=== PATIENT | female | born 1945 | race Caucasian/White ===

== ENCOUNTER 2017-10-31 10:27 | Emergency (ER) | payer MEDICARE | END 2017-10-31 10:52 | disposition left against medical advice (07) | LOC: UCEAST 10:27 | DX: T14.8XXA Other injury of unspecified body region, initial encounter (principal); W57.XXXA Bitten or stung by nonvenomous insect and other nonvenomous arthropods, initial encounter; Y93.9 Activity, unspecified; Y92.9 Unspecified place or not applicable; Z53.21 Procedure and treatment not carried out due to patient leaving prior to being seen by health care provider ==

== ENCOUNTER 2017-10-31 11:37 | Emergency (ER) | payer MEDICARE ==
--- NOTE | 2017-10-31 12:12 | UC ---
Skin Complaint HPI - HPI Summary HPI Summary: 72 y/o WF presents with tick bite to left flank. She tells me that she was outside most of the day yesterday and noticed the tick on her this morning. Tick is still present. - History of Current Complaint Time Seen by Provider: 10/31/17 12:12 Stated Complaint: TICK BITE Hx Obtained From: Patient Onset/Duration: Sudden Onset Skin Exposure Onset/Duration: Hours Ago - Allergy/Home Medications Allergies/Adverse Reactions: Allergies Allergy/AdvReac Type Severity Reaction Status Date / Time adhesive Allergy Rash Verified 10/31/17 12:29 atropine Allergy Unknown Verified 10/31/17 12:29 Reaction Details azithromycin Allergy Rash Verified 10/31/17 12:29 ciprofloxacin [From Cipro] Allergy Rash And Verified 10/31/17 12:29 Itching erythromycin base Allergy Sweats/Chil Verified 10/31/17 12:29 ls iodine Allergy Unknown Verified 10/31/17 12:29 Reaction Details latex Allergy Rash Verified 10/31/17 12:29 methyldopa [From Aldomet] Allergy Fever/Chill Verified 10/31/17 12:29 s Penicillins Allergy Agitation Verified 10/31/17 12:29 shellfish derived Allergy Anaphylatic Verified 10/31/17 12:29 Shock sulfamethoxazole Allergy Anaphylatic Verified 10/31/17 12:29 [From Bactrim] Shock trimethoprim [From Bactrim] Allergy Anaphylatic Verified 10/31/17 12:29 Shock chlorpheniramine AdvReac Insomnia Verified 10/31/17 12:29 guaifenesin [From Entex T] AdvReac Agitation Verified 10/31/17 12:29 methylparaben AdvReac Agitation Verified 10/31/17 12:34 phenylephrine AdvReac Agitation Verified 10/31/17 12:34 phenylpropanolamine AdvReac Agitation Verified 10/31/17 12:34 pseudoephedrine AdvReac Agitation Verified 10/31/17 12:29 [From Entex T] shrimp/lobster Allergy Severe Hives Uncoded 03/31/15 11:59 wasp stings Allergy Severe Hives Uncoded 03/31/15 11:59 ERYS Allergy sweats/chil Uncoded 10/31/17 12:29 ls EES AdvReac Severe Diarrhea Uncoded 02/23/17 11:09 decongestants AdvReac Intermediate See Comment Uncoded 02/23/17 11:09 ENVIRONMENTAL ALLERGIES AdvReac Mild Unknown Uncoded 03/31/15 11:59 Reaction Details Home Medications: Home Medications Albuterol Sulfate [Proventil Hfa] 7 gm INH Q4HR PRN 10/31/17 [History Confirmed 10/31/17] Estradiol [Yuvafem] 10 mcg VAGINAL SEE INSTRUCTIONS 10/31/17 [History Confirmed 10/31/17] Fluticasone/Vilanterol MDI(NF) [Breo Ellipta MDI 100/25(NF)] 1 puff INH DAILY [History Confirmed 10/31/17] Losartan Potassium 100 mg PO DAILY 10/31/17 [History Confirmed 10/31/17] [place]-3 Fatty Acids/Fish Oil [Fish Oil 1,000 mg Capsule] 1 tab PO DAILY [History Confirmed 10/31/17] Triamcinolone NASAL SPRAY* [Nasacort Aq Nasal [place]*] 2 spray NASAL DAILY [History Confirmed 10/31/17] metroNIDAZOLE [Metronidazole 0.75 % gel] 1 applic TOPICAL DAILY 10/31/17 [ History Confirmed 10/31/17] Review of Systems Constitutional: Negative Skin: Other - Tick bite Eyes: Negative ENT: Negative Respiratory: Negative Cardiovascular: Negative Gastrointestinal: Negative Neurovascular: Negative Neurological: Negative Psychological: Negative All Other Systems Reviewed And Are Negative: Yes PMH/Surg Hx/FS Hx/Imm Hx Endocrine History: Dyslipidemia Cardiovascular History: Hypertension Respiratory History: COPD, Asthma Psychological History: Anxiety, Depression - Surgical History Surgical History: Yes Surgery Procedure, Year, and Place: NASAL SURGERY POLYPS, OFFICE. NASAL SURGERY LEFT PRISCILA FUENTES. DILATION AND CURETTAGE-11/27, [facility] [place]. CATARACT RIGHT EYE 11/29, [facility] [place]. CATARACT LEFT EYE 08/2003, [facility] [place]; LEFT KNEE. 2012 LEFT KNEE PATELLA SURGERY X 4, [facility] - Family History Known Family History: Positive: Unknown - Social History Occupation: Retired Lives: With Family Alcohol Use: None Substance Use Type: None Smoking Status (MU): Never Smoked Tobacco - Immunization History Most Recent Influenza Vaccination: 2011 Most Recent Tetanus Shot: within last 10 years Most Recent Pneumonia Vaccination: 10 years ago Physical Exam - Summary Physical Exam Summary: GENERAL: NAD. WDWN. No pain distress. SKIN: Left flank: there is a 5mm diameter of mild erythema and edema with tick present. Not engorged. No streaking, bleeding, or drainage. NECK: Supple. Nontender. No lymphadenopathy. CHEST: No accessory muscle use. Breathing comfortably and in no distress. CV: RRR. Without m/r/g. NEURO: Alert. CN II-XII grossly intact. PSYCH: Age appropriate behavior. Triage Information Reviewed: Yes Course/Dx - Course Course Of Treatment: Tick bite left flank <24hours and not engorged. No treatment needed. Tick removed with tick tweezers. - Diagnoses Provider Diagnoses: Tick bite left flank Discharge - Sign-Out/Discharge Documenting (check all that apply): Discharge/Admit/Transfer - Discharge Plan Condition: Stable Disposition: HOME Patient Education Materials: Tick Bite (ED) Referrals: Silvina Sabillon MD [Primary Care Provider] - Additional Instructions: TICK BITE: You have been bitten by a tick. Once the tick is removed, these "bites" usually cause no problems. Tick fever, tick paralysis, [place] Spotted fever, and Lyme disease are uncommon -- but you should mention this tick bite to your doctor if you develop unusual symptoms in the next several weeks. If you develop any of the following, please see your physician promptly: (1) Fever, chills, or generalized malaise associated with a headache. (2) A red round area at the site of the bite (or elsewhere) (3) Joint pain, joint swelling or generalized weakness. (4) Redness, swelling, or drainage at the site of the bite. - Billing Disposition and Condition Condition: STABLE Disposition: HOME
[2017-10-31 12:20] VITALS: BP 123/64
== END 2017-10-31 12:45 | disposition home or self-care (01) ==
LOC: UCEAST 11:37
DX: S30.861A Insect bite (nonvenomous) of abdominal wall, initial encounter (principal); W57.XXXA Bitten or stung by nonvenomous insect and other nonvenomous arthropods, initial encounter; Y93.9 Activity, unspecified; Y92.89 Other specified places as the place of occurrence of the external cause; E78.5 Hyperlipidemia, unspecified; I10 Essential (primary) hypertension; J44.9 Chronic obstructive pulmonary disease, unspecified; F41.9 Anxiety disorder, unspecified; F32.9 Major depressive disorder, single episode, unspecified; Z88.1 Allergy status to other antibiotic agents; Z88.3 Allergy status to other anti-infective agents; Z91.040 Latex allergy status; Z88.0 Allergy status to penicillin; Z88.2 Allergy status to sulfonamides; Z88.8 Allergy status to other drugs, medicaments and biological substances; Z91.048 Other nonmedicinal substance allergy status
CPT/HCPCS: 99212; G0463

== ENCOUNTER 2018-06-26 13:29 | Emergency (ER) | payer MEDICARE ==
--- OUTSIDE RECORDS SUMMARY | 2018-06-26 14:16 | XMS REPORT | Continuity of Care Document ---
:1945 External Reference #:[id number] Author Name Checo Bah M.D. Address [address] [place] [address] Care Team Providers Name Role Phone Silvina Sabillon M.D. Primary Care Physician Unavailable Payers Type Date Identification Numbers Payment Provider Subscriber Policy Number: [id number] Medicare - [facility] Татьяна Seo Mychal Cruz PayID: [id number] [address] [place] [address] Policy Number: [id number] [facility] Татьяна Rayray Mychal Cruz PayID: [id number] [address] [place] [address] Advance Directives Description No Information Available Problems Date Description Provider Status Onset: Essential hypertension Active Onset: Irregular heart beat Active Onset: Anxiety Active Onset: Mild depression Active Onset: Hypercholesterolemia Active Onset: Asthma Active Onset: Seasonal allergy Active Onset: Sinusitis Active Onset: Psoriasis Active Onset: Restless legs Active Onset: 11/07/2014 Glaucoma Pari Cheema O.D. Active Onset: 11/07/2014 Tear film insufficiency Pari Cheema O.D. Active Onset: 11/07/2014 Severe / Advanced / End Stage Pari Cheema O.D. Active Glaucoma Onset: 01/03/2015 Primary open angle glaucoma Checo Bah M.D. Active Onset: 01/09/2015 Pseudophakia Checo Bah M.D. Active Onset: 12/09/2016 Other secondary cataract, right eye Checo Bah M.D. Active Onset: 06/12/2017 Vitreous degeneration Checo Bah M.D. Active Onset: 04/26/2018 Blepharitis Yomi Ovalles M.D. 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 ETOH Use Rarely consumes alcohol Tobacco Use Start: Unknown Patient has never smoked Smoking Status Reviewed: 06/14/18 Patient has never smoked Allergies, Adverse Reactions, Alerts Date Description Reaction Status Severity Comments 11/07/2014 Sulfa Antibiotics Active 11/07/2014 Bactrim Active 11/07/2014 Penicillins Active 11/07/2014 Cipro Active 11/07/2014 Zithromax Active 11/07/2014 Atropine Active 11/07/2014 Aldesleukin Active 11/07/2014 Bandaids Active Medications Medication Date Status Form Strength Qnty SIG Indications Ordering Provider Systane 11/06/ Active Solution 0.4-0.3% four Pari K. 2015 times a [place], day as O.D. needed Systane 11/06/ Active Ointment every Pari K. Nighttime 2014 night Deni, O.D. Proventil HFA / Active Aerosol 108(90Base Unknown 0000 ) mcg/Act Nasonex / Active Suspension 50mcg/Act Unknown 0000 Alendronate / Active Tablets 10mg 1 by Unknown Sodium 0000 mouth every day Amlodipine / Active Tablets 5mg Unknown Besylate 0000 Clonazepam / Active Tablets 1mg Unknown 0000 Escitalopram / Active Tablets 20mg Unknown Oxalate 0000 Tylenol 8 Hour / Active Tablets ER 650mg prn Unknown 0000 Aleve / Active Capsules 220mg as Unknown 0000 needed Losartan / Active Tablets 50mg Unknown Potassium 0000 Lovastatin / Active Tablets 20mg Unknown 0000 Metronidazole / Active Gel 0.75% Unknown 0000 Potassium / Active Tablets ER 10Meq Unknown Chloride ER 0000 Fish Oil / Active Capsules 1000mg 1 by Checo García 0000 mouth Arleo, every M.D. day Benefiber 00/00/ Active Powder Unknown 0000 Zeasorb 00/00/ Active Powder Unknown 0000 Breo Ellipta 00/00/ Active Aerosol 200-25mcg/ Unknown 0000 Inh Cetirizine HCL 00/00/ Active Tablets 10mg Unknown 0000 Ranitidine HCL 00/00/ Active Tablets 150mg Unknown 0000 Eplerenone 00/00/ Active Tablets 25mg Unknown 0000 Calcium + D3 0000/ Active Tablets 600-200mg- Unknown 0000 Unit Magnesium 0000/ Active Tablets 250mg Unknown 0000 Yuvafem 00/00/ Active Tablets 10mcg Unknown 0000 Erythromycin 04/26/ Hx Ointment 5mg/GM 1Tube Apply To H01.005 Yomi 2017 - The Left Zakenricki, 06/13/ Eye AT M.D. 2018 Night For 2 Weeks Pred Forte 01/09/ Hx Suspension 1% 15ml 1 drop 365.11 Checo García 2014 - left eye Arleo, 01/19/ three M.D. 2015 times a day for three days. start after nadeem acuña Advair Diskus 00/00/ Hx Aerosol 500-50mcg/ Unknown 0000 - Dose 2014 Zyrtec Allergy 00/00/ Hx Capsules 10mg as Unknown 0000 - needed 2017 Saline Nasal / Hx Solution 0.65% Unknown [place] - 2016 Aspirin 00/00/ Hx Chewtabs 81mg Unknown 0000 - 2016 Omeprazole /00/ Hx Capsules DR 20mg Unknown 0000 - 2016 Vagifem / Hx Tablets 10mcg Unknown 0000 - 2017 Caltrate 600+D 00// Hx Chewtabs 600-400mg- Unknown 0000 - Unit 2016 Dulera 00/00/ Hx Aerosol 100-5mcg/A Unknown 0000 - ct 2016 Vitamin D3 High 00/00/ Hx Capsules 1000Unit Unknown Potency - 2016 Vitamin D3 00/00/ Hx Chewtabs 1000Unit Unknown 0000 - 2016 Immunizations Description No Information Available Vital Signs Date Vital Result Comment 12/22/2016 2:47pm BP Systolic 132 mmHg BP Diastolic 77 mmHg Heart Rate 61 /min Results Description No Information Available Procedures Date Code Description Status 04/26/2018 51015 Est Patient Intermediate Exam Completed 12/10/2017 86403 Est Patient Intermediate Exam Completed 06/12/2017 31803 Scanning Computerized Ophthalmic Diagnostic Imag Posterior Completed Seg On 06/12/2017 90524 Visual Field Exam Extended Completed 06/12/2017 49519 Est Patient Comprehensive Exam Completed 12/22/2016 81053 Remove Secondary Cataract, Laser (Yag) Completed 12/09/2016 91630 Est Patient Comprehensive Exam Completed 06/09/2016 54953 Est Patient Intermediate Exam Completed 06/09/2016 28482 Scanning Computerized Ophthalmic Diagnostic Imag Posterior Completed Seg On 06/05/2016 47190 Visual Field Exam Extended Completed 10/09/2015 83552 Fundus Photography With Interpretation And Report Completed 10/09/2015 36035 Est Patient Comprehensive Exam Completed 01/15/2015 71232 Trabeculoplasty By Laser Surgery Completed 01/15/2015 601 [place] Completed 01/09/2015 51908 Est Patient Intermediate Exam Completed 01/03/2015 29360 Visual Field Exam Extended Completed 06/12/2014 01652 Est Patient Comprehensive Exam Completed 06/12/2014 61197 Fundus Photography With Interpretation And Report Completed 12/20/2013 21395 Visual Field Exam Extended Completed 12/09/2013 99818 Remove Secondary Cataract, Laser (Yag) Completed 12/05/2013 54905 Est Patient Comprehensive Exam Completed 01/17/2013 31116 Scanning Computerized Ophthalmic Diagnostic Imag Posterior Completed Seg On 01/17/2013 72754 Est Patient Intermediate Exam Completed 01/14/2013 22820 Visual Field Exam Extended Completed 07/12/2012 17242 Determination Of Refractive State Completed 07/12/2012 64782 Est Patient Comprehensive Exam Completed 01/08/2012 03821 Scanning Computerized Ophthalmic Diagnostic Imag Posterior Completed Seg On 01/08/2012 18425 Visual Field Exam Extended Completed 01/08/2012 39874 Est Patient Intermediate Exam Completed 11/19/2011 29299 Est Patient Intermediate Exam Completed 07/10/2011 68774 Fundus Photography With Interpretation And Report Completed 07/10/2011 12553 Est Patient Intermediate Exam Completed 01/02/2011 88734 Est Patient Comprehensive Exam Completed 01/02/2011 62696 Visual Field Exam Extended Completed 09/07/2010 50362 Est Patient Intermediate Exam Completed 07/02/2010 34019 Scanning Laser W/Interp And Report Completed 07/02/2010 68115 Scanning Laser W/Interp And Report Completed 07/02/2010 43500 Est Patient Intermediate Exam Completed 12/21/2009 88977 Visual Field Exam Extended Completed 12/21/2009 49866 Est Patient Intermediate Exam Completed 06/05/2009 68934 Est Patient Comprehensive Exam Completed 06/05/2009 50891 Fundus Photography With Interpretation And Report Completed 11/30/2008 41030 Visual Field Exam Extended Completed 11/30/2008 50501 Est Patient Intermediate Exam Completed 05/30/2008 28135 Scanning Laser W/Interp And Report Completed 05/30/2008 93333 Determination Of Refractive State Completed 05/30/2008 25525 Est Patient Intermediate Exam Completed 12/29/2007 34347 Visual Field Exam Extended Completed 11/23/2007 67875 Determination Of Refractive State Completed 11/23/2007 09273 Est Patient Intermediate Exam Completed 05/24/2007 37718 Est Patient Intermediate Exam Completed 01/01/2007 18238 Scanning Laser W/Interp And Report Completed 01/01/2007 57746 Visual Field Exam Extended Completed 11/25/2006 03487 Fundus Photography With Interpretation And Report Completed 11/25/2006 46260 Determination Of Refractive State Completed 11/25/2006 26651 Est Patient Comprehensive Exam Completed 12/26/2005 90215 Visual Field Exam Extended Completed 11/21/2005 71099 Est Patient Comprehensive Exam Completed 11/21/2005 42169 Determination Of Refractive State Completed 11/19/2004 00951 Determination Of Refractive State Completed 11/19/2004 21669 Est Patient Comprehensive Exam Completed 11/19/2004 510 Eye Scrubs 30 Count Completed 05/20/2004 25679 Est Patient Intermediate Exam Completed 02/21/2004 05837 Visual Field Exam Intermediate Completed 02/07/2004 57360 Est Patient Intermediate Exam Completed 10/12/[address] 35 Completed 09/27/2003 44467 Extracapsular Cataract Extraction W/Intraocular Lens Completed Encounters Type Date Location Provider Dx Diagnosis Office Visit 02/26/2015 Checo Vera, 365.11 Primary Open Angle 10:30a zeina PAEZ M.D. Glaucoma 365.73 Severe / Advanced / End Stage Glaucoma V43.1 Pseudophakia Office Visit 11/07/2014 11:15a Pari Vera, 365.11 Primary Open zeina PAEZ O.D. Angle Glaucoma 375.15 Dry Eyes (Sicca Syndrome) 365.73 Severe / Advanced / End Stage Glaucoma Office Visit 06/16/2014 11:10a Checo García 379.91 Pain In Or Around MD Niurka, zeina Rendon O.D. Eye Office Visit 12/15/2011 1:30p Checo Minor 372.14 Allergic MD Niurka, zeina Lau M.D. Conjunctivitis Office Visit 10/10/2010 2:45p Checo [place] 372.14 Allergic MD Niurka, zeina Ji O.D. Conjunctivitis Office Visit 12/28/2003 2:00p Checo Delc[place] 372.14 Allergic MD Niurka, zeina Orta Conjunctivitis Plan of Treatment 06/14/2018 - Checo Bah M.D.H40.1123 Primary open-angle glaucoma, left eye , severe stageComments:Smoking can increase the risk of developing or worsening any eye related disease, as well as affect your overall health. If you are a smoker, we strongly recommend that you quit.If you are not a smoker, we strongly recommend that you do not start. Your glaucoma is stable at this time in your left eye.Your eye pressure is within an acceptable range, and your testing does not show any further deterioration at this time. Please continue your treatment as directed and keep follow up appointments.Follow up:6 Month Follow Up IOP Check At your next visit, we are not planning to dilate your eyes. However, if you have any changes in your vision or new symptoms, there are certain situations that require us to dilate your eyes. If Dr. Bah requests any additional testing, that may require extra time. If you have any questions before your next appointment, please call our office at .H40.1111 Primary open-angle glaucoma, right eye, mild stageComments:Your Glaucoma is stable at this time in your right eye. Your eye pressure is within an acceptable range, and your testing does not show any further deterioration at this time. Please continue your treatment as directed and keep follow up appointments.Z96.1 Presence of intraocular lensComments:The artificial lens implants in both eyes appear to be stable at this time.H43.813 Vitreous degeneration, bilateralComments:You have a Posterior Vitreous Detachment. If you have any changes in your floaters or flashing lights, please contact this office.
[2018-06-26 14:21] VITALS: BP 132/61
--- NOTE | 2018-06-26 14:41 | UC ---
Respiratory Complaint HPI - HPI Summary HPI Summary: 73-year-old woman comes in with a chief complaint of cough chest congestion. Last 4 days she's been bringing up sputum which went from yellow to green and now this also darkness in the sputum. No recent fevers. Does feel ill. does use inhalers for asthma. - History of Current Complaint Chief Complaint: UCRespiratory Stated Complaint: COUGH Time Seen by Provider: 06/26/18 14:24 Hx Last Menstrual Period: na Pain Intensity: 7 - Allergies/Home Medications Allergies/Adverse Reactions: Allergies Allergy/AdvReac Type Severity Reaction Status Date / Time adhesive Allergy Rash Verified 06/26/18 14:22 atropine Allergy Unknown Verified 06/26/18 14:22 Reaction Details azithromycin Allergy Rash Verified 06/26/18 14:22 ciprofloxacin [From Cipro] Allergy Rash And Verified 06/26/18 14:22 Itching erythromycin base Allergy Sweats/Chil Verified 06/26/18 14:22 ls iodine Allergy Unknown Verified 06/26/18 14:22 Reaction Details latex Allergy Rash Verified 06/26/18 14:22 methyldopa [From Aldomet] Allergy Fever/Chill Verified 06/26/18 14:22 s Penicillins Allergy Agitation Verified 06/26/18 14:22 shellfish derived Allergy Anaphylatic Verified 06/26/18 14:22 Shock sulfamethoxazole Allergy Anaphylatic Verified 06/26/18 14:22 [From Bactrim] Shock trimethoprim [From Bactrim] Allergy Anaphylatic Verified 06/26/18 14:22 Shock chlorpheniramine AdvReac Insomnia Verified 06/26/18 14:22 guaifenesin [From Entex T] AdvReac Agitation Verified 06/26/18 14:22 methylparaben AdvReac Agitation Verified 06/26/18 14:22 phenylephrine AdvReac Agitation Verified 06/26/18 14:22 phenylpropanolamine AdvReac Agitation Verified 06/26/18 14:22 pseudoephedrine AdvReac Agitation Verified 06/26/18 14:22 [From Entex T] shrimp/lobster Allergy Severe Hives Uncoded 06/26/18 14:22 wasp stings Allergy Severe Hives Uncoded 06/26/18 14:22 ERYS Allergy sweats/chil Uncoded 06/26/18 14:22 ls EES AdvReac Severe Diarrhea Uncoded 06/26/18 14:22 decongestants AdvReac Intermediate See Comment Uncoded 06/26/18 14:22 ENVIRONMENTAL ALLERGIES AdvReac Mild Unknown Uncoded 06/26/18 14:22 Reaction Details PMH/Surg Hx/FS Hx/Imm Hx Previously Healthy: Yes Cardiovascular History: Hypertension Respiratory History: Asthma - Surgical History Surgical History: Yes Surgery Procedure, Year, and Place: NASAL SURGERY POLYPS, OFFICE. NASAL SURGERY LEFT PRISCILA FUENTES. DILATION AND CURETTAGE-11/27, [facility] [place]. CATARACT RIGHT EYE 11/29, [facility] [place]. CATARACT LEFT EYE 08/2003, [facility] [place]; LEFT KNEE. 2012 LEFT KNEE PATELLA SURGERY X 4, [facility] - Family History Known Family History: Positive: Unknown - Social History Alcohol Use: Rare Substance Use Type: None Smoking Status (MU): Never Smoked Tobacco - Immunization History Most Recent Influenza Vaccination: 2011 Most Recent Tetanus Shot: within last 10 years Most Recent Pneumonia Vaccination: 10 years ago Review of Systems All Other Systems Reviewed And Are Negative: Yes Constitutional: Positive: Negative Skin: Positive: Negative Eyes: Positive: Negative ENT: Positive: Sore Throat, Nasal Discharge Respiratory: Positive: Cough Cardiovascular: Positive: Negative Gastrointestinal: Positive: Negative Motor: Positive: Negative Neurovascular: Positive: Negative Musculoskeletal: Positive: Negative Neurological: Positive: Negative Psychological: Positive: Negative Is Patient Immunocompromised?: No Physical Exam Triage Information Reviewed: Yes Appearance: No Pain Distress, Well-Nourished, Ill-Appearing - MILD Vital Signs: Initial Vital Signs Temp 97.8 F 06/26/18 14:15 Pulse 67 06/26/18 14:15 Resp 18 06/26/18 14:15 BP 132/61 06/26/18 14:15 Pulse Ox 97 06/26/18 14:15 Vital Signs Reviewed: Yes Eye Exam: Normal Eyes: Positive: Conjunctiva Clear ENT: Positive: Pharyngeal erythema, Nasal congestion, TMs normal Neck exam: Normal Neck: Positive: Supple Respiratory: Positive: Lungs clear, Normal breath sounds, No respiratory distress Cardiovascular: Positive: RRR Musculoskeletal Exam: Normal Musculoskeletal: Positive: Strength Intact, ROM Intact Neurological Exam: Normal Neurological: Positive: Alert, Muscle Tone Normal Psychological Exam: Normal Psychological: Positive: Age Appropriate Behavior Skin Exam: Normal UC Diagnostic Evaluation - Laboratory O2 Sat by Pulse Oximetry: 97 Respiratory Course/Dx - Course Course Of Treatment: Clinically the patient has bronchitis. I do not hear consolidation on exam. She reports yellow and dark sputum. With her history of asthma I believe it's important to treat sooner than later. She has multiple allergies including 2 azithromycin and ciprofloxacin. Also reports GI upset with doxycycline. She does tolerate cephalosporins and therefore I will go ahead and treat with CefDINIR. Follow-up primary care doctor reevaluation sooner if worse or any questions or concerns. - Differential Dx/Diagnosis Provider Diagnosis: Bronchitis Discharge - Sign-Out/Discharge Documenting (check all that apply): Patient Departure All imaging exams completed and their final reports reviewed: No Studies - Discharge Plan Condition: Stable Disposition: HOME Prescriptions: Cefdinir cap (NF) [Cefdinir 300 MG cap (NF)] 300 mg PO BID #20 cap Patient Education Materials: Acute Bronchitis (ED) Referrals: Silvina Sabillon MD [Primary Care Provider] - Additional Instructions: FOLLOW UP WITH YOUR DOCTOR. GET RECHECKED FOR ANY WORSENING OF YOUR CONDITION OR QUESTIONS OR CONCERNS. - Billing Disposition and Condition Condition: STABLE Disposition: Home
== END 2018-06-26 14:49 | disposition home or self-care (01) ==
LOC: UCEAST 13:29
DX: J40 Bronchitis, not specified as acute or chronic (principal); I10 Essential (primary) hypertension; J45.909 Unspecified asthma, uncomplicated; Z88.8 Allergy status to other drugs, medicaments and biological substances; Z88.1 Allergy status to other antibiotic agents; Z91.048 Other nonmedicinal substance allergy status; Z91.030 Bee allergy status; Z91.040 Latex allergy status; Z91.013 Allergy to seafood; Z91.09 Other allergy status, other than to drugs and biological substances; Z88.0 Allergy status to penicillin
CPT/HCPCS: 99212; G0463

== ENCOUNTER 2022-03-09 10:21 | Observation (INO) ==
[2022-03-09 10:55] LABS: ABS Lymphocytes 1.9 10^3/ul (1.0-4.8); ABS Monocytes 1.3 10^3/ul (0-0.8); ABS Neutrophils 8.9 10^3/ul (1.5-7.7); Eosinophil % 0.3 %; Hematocrit 36 % (35-47); Hemoglobin 12.3 g/dL (12.0-16.0); Lymphocyte % 15.5 %; Mean Corpuscular HGB Conc 34 g/dL (31-36); Mean Corpuscular Hemoglobin 28 pg (27-31); Mean Corpuscular Volume 82 fL (80-97); Mean Platelet Volume 6.8 fL (7.4-10.4); Platelet Count 239 10^3/uL (150-450); Red Blood Count 4.37 10^6 /uL (3.70-4.87); Red Cell Distribution Width 16 % (10-15); White Blood Count 12.2 10^3/uL (3.5-10.8)
[2022-03-09 11:13] LABS: Activated Partial Thrombo Time 28.8 seconds (26.0-38.0); INR 1.23 (0.89-1.11)
[2022-03-09 11:44] LABS: Albumin 3.8 g/dL (3.2-5.2); Albumin/Globulin Ratio 1.4 (1-3); Calcium 9.2 mg/dL (8.6-10.3); Globulin 2.8 g/dL (2-4); Magnesium 1.8 mg/dL (1.9-2.7); Potassium 3.8 mmol/L (3.5-5.0); Total Bilirubin 0.6 mg/dL (0.2-1.0); Total Protein 6.6 g/dL (6.4-8.9); eGFR CKD-EPI 86.6 (>60)
[2022-03-09] MEDS ORDERED: NS 0.9% 1000 ml BAG 1,000 ML IV ONE (12:10)
[2022-03-09] MEDS ORDERED: Ondansetron 4 mg VIAL 2 MG/ML 2 ml VIAL IV PRN (13:57)
[2022-03-09] MEDS ORDERED: cefTRIAXone 1 gm/50 mL D5W 1 GM/50 ML BAG IV SCH (14:00)
[2022-03-09] MEDS ORDERED: NS 0.9% 1000 ml BAG 1,000 ML IV SCH (14:00)
[2022-03-09] MEDS ORDERED: metroNIDAZOLE IV 500 MG/100ML 500 MG/100 ML BAG IVPB SCH (14:00)
[2022-03-09] MEDS: Mometasone/Formoter 200/5 MDI INH SCH (21:43)
[2022-03-09] MEDS: metroNIDAZOLE IV 500 MG/100ML 500 MG/100 ML BAG IVPB SCH (21:49)
[2022-03-09 22:12] LABS: Hematocrit 36 % (35-47); Hemoglobin 11.4 g/dL (12.0-16.0)
[2022-03-10] MEDS: metroNIDAZOLE IV 500 MG/100ML 500 MG/100 ML BAG IVPB SCH ×2 (05:14→14:41)
[2022-03-10 06:12] LABS: ABS Eosinophils 0.1 10^3/ul (0-0.6); ABS Lymphocytes 2.3 10^3/ul (1.0-4.8); ABS Monocytes 1.1 10^3/ul (0-0.8); ABS Neutrophils 6.3 10^3/ul (1.5-7.7); Eosinophil % 1.1 %; Hematocrit 33 % (35-47); Hemoglobin 11.1 g/dL (12.0-16.0); Lymphocyte % 23.6 %; Mean Corpuscular HGB Conc 33 g/dL (31-36); Mean Corpuscular Hemoglobin 28 pg (27-31); Mean Corpuscular Volume 84 fL (80-97); Mean Platelet Volume 6.9 fL (7.4-10.4); Platelet Count 194 10^3/uL (150-450); Red Blood Count 3.92 10^6 /uL (3.70-4.87); Red Cell Distribution Width 16 % (10-15); White Blood Count 9.9 10^3/uL (3.5-10.8)
[2022-03-10 06:31] LABS: Calcium 8.5 mg/dL (8.6-10.3); Potassium 3.9 mmol/L (3.5-5.0); eGFR CKD-EPI 91.2 (>60)
[2022-03-10] MEDS: Mometasone/Formoter 200/5 MDI INH SCH (07:40)
[2022-03-10 11:20] VITALS: BP 125/60
[2022-03-10] MEDS ORDERED: Saline NASAL SPRAY 0.65% BTL BOTH NARES SCH (11:30)
[2022-03-10] MEDS ORDERED: cefTRIAXone 1 gm/50 mL D5W 1 GM/50 ML BAG IV SCH (14:00)
[2022-03-11] MEDS ORDERED: Fluticasone NASAL SPRAY 50MCG 16 gm SPRAY BTL INTRANASAL SCH (09:00)
== END 2022-03-10 16:00 | disposition home or self-care (01) ==
LOC: EDHOLD 10:21 → ED 10:21 → MED 15:53
PROVIDERS: ADMIT Internal Medicine; ATTEND Internal Medicine